=== PATIENT | male | born 1985 | race Caucasian/White ===

== ENCOUNTER 2016-10-03 16:38 | Emergency (ER) | payer MEDICAID ==
[2016-10-03 16:46] VITALS: BP 134/78
== END 2016-10-03 18:31 | disposition home or self-care (01) ==
LOC: ED 16:38
DX: S60.022A Contusion of left index finger without damage to nail, initial encounter (principal); W23.0XXA Caught, crushed, jammed, or pinched between moving objects, initial encounter; Y93.E9 Activity, other interior property and clothing maintenance; Y92.59 Other trade areas as the place of occurrence of the external cause; Y99.8 Other external cause status; F12.10 Cannabis abuse, uncomplicated; F17.210 Nicotine dependence, cigarettes, uncomplicated
CPT/HCPCS: 90715

== ENCOUNTER 2016-12-16 13:16 | Emergency (ER) | payer MEDICAID ==
[2016-12-16 14:20] LABS: BASOPHIL % 0.4 % (0-2); PLATELET COUNT 274 x10^3mcL (130-400)
[2016-12-16 14:27] LABS: CARBON DIOXIDE 26.9 mmol/L (21-32); CHLORIDE SERUM 107 mmol/L (98-107); CREATININE SERUM 1.1 mg/dL (0.7-1.3); GFR1 > 60 mL/min; GLUCOSE SERUM 96 mg/dL (74-106); POTASSIUM SERUM 4.4 mmol/L (3.5-5.1); SODIUM SERUM 145 mmol/L (136-145)
[2016-12-16 14:31] LABS: ALKALINE PHOSPHATASE 57 U/L (46-116); ALT/SGPT 33 U/L (16-63); AST/SGOT 18 U/L (15-37); BILIRUBIN TOTAL 0.83 mg/dL (0.20-1.00); LIPASE 97 IU/L (73-393); TOTAL PROTEIN, SERUM 7.7 g/dL (6.4-8.2)
[2016-12-16 15:55] VITALS: BP 128/72
== END 2016-12-16 15:55 | disposition home or self-care (01) ==
LOC: ED 13:16
PROVIDERS: Emergency Medicine
DX: R10.9 Unspecified abdominal pain (principal); J45.909 Unspecified asthma, uncomplicated; Z88.0 Allergy status to penicillin
CPT/HCPCS: 36415

== ENCOUNTER 2016-12-22 15:20 | Emergency (ER) | payer MEDICAID ==
[~2016-12-22] VITALS: Ht 172.7 cm; Wt 9.7 kg
[2016-12-22 15:40] VITALS: BP 130/74
== END 2016-12-22 17:15 | disposition home or self-care (01) ==
LOC: ED 15:20
DX: L02.214 Cutaneous abscess of groin (principal)
CPT/HCPCS: J2001

== ENCOUNTER 2016-12-24 16:26 | Emergency (ER) | payer MEDICAID ==
[2016-12-24 18:27] VITALS: BP 126/60
== END 2016-12-24 18:27 | disposition home or self-care (01) ==
LOC: ED 16:26
DX: Z48.01 Encounter for change or removal of surgical wound dressing (principal)

== ENCOUNTER 2017-03-11 15:45 | Emergency (ER) | payer OTHER ==
[~2017-03-11] VITALS: Ht 172.7 cm; Wt 103.4 kg
[2017-03-11 15:56] VITALS: BP 139/76
== END 2017-03-11 18:30 | disposition home or self-care (01) ==
LOC: ED 15:45
DX: S80.12XA Contusion of left lower leg, initial encounter (principal); J45.909 Unspecified asthma, uncomplicated; Z88.0 Allergy status to penicillin; W22.8XXA Striking against or struck by other objects, initial encounter; Y93.89 Activity, other specified; Y99.8 Other external cause status; Y92.89 Other specified places as the place of occurrence of the external cause

== ENCOUNTER 2018-02-28 01:54 | Emergency (ER) | payer MEDICAID ==
[~2018-02-28] VITALS: Ht 172.7 cm; Wt 97.5 kg
[2018-02-28 02:00] VITALS: Ht 172.7 cm; Wt 97.5 kg
[2018-02-28 02:45] LABS: CALCIUM 8.9 mg/dL (8.5-10.1); CARBON DIOXIDE 28.6 mmol/L (21-32); CHLORIDE SERUM 103 mmol/L (98-107); CREATININE SERUM 0.9 mg/dL (0.7-1.3); GFR1 > 60 mL/min; GLUCOSE SERUM 107 mg/dL (74-106); SODIUM SERUM 138 mmol/L (136-145)
[2018-02-28 02:50] LABS: ALBUMIN 4.1 g/dL (3.4-5.0); ALKALINE PHOSPHATASE 78 U/L (46-116); ALT/SGPT 25 U/L (16-63); AST/SGOT 20 U/L (15-37); BILIRUBIN TOTAL 0.51 mg/dL (0.20-1.00)
[2018-02-28 02:59] LABS: RED CELL DISTRIBUTION WIDTH 12.9 % (11.5-14.5)
[2018-02-28 03:01] LABS: BASOPHIL % 0.7 % (0-2); PLATELET COUNT 282 x10^3mcL (130-400)
[2018-02-28 05:18] VITALS: BP 122/77
== END 2018-02-28 05:18 | disposition home or self-care (01) ==
LOC: ED 01:54
PROVIDERS: Emergency Medicine
DX: T78.2XXA Anaphylactic shock, unspecified, initial encounter (principal); J45.909 Unspecified asthma, uncomplicated; Z88.0 Allergy status to penicillin
CPT/HCPCS: J0171; J2930; J3490; Q0092

== ENCOUNTER 2018-07-15 08:05 | Day surgery (SDC) | payer OTHER ==
[~2018-07-15] VITALS: Ht 172.7 cm; Wt 97.5 kg
[2018-07-15 08:42] VITALS: BP 129/66
[2018-07-15 11:36] VITALS: BP 125/67
== END 2018-07-15 11:20 | disposition home or self-care (01) ==
LOC: GI 08:05 → OR 09:30 → GI 11:20
PROVIDERS: Internal Medicine Gastroenterology
PROC: 0DJD8ZZ Inspection of Lower Intestinal Tract, Via Natural or Artificial Opening Endoscopic (ICD-10-PCS; principal; 2018-07-15 08:30)
DX: K62.5 Hemorrhage of anus and rectum (principal); K64.8 Other hemorrhoids; K59.00 Constipation, unspecified
CPT/HCPCS: 45378; J1200; J1610; J2250; J2310; J3010; J3490